=== PATIENT | female | born 1980 | race Caucasian/White ===

== ENCOUNTER 2018-01-28 09:18 | Emergency (ER) | payer OTHER ==
[~2018-01-28] VITALS: Ht 160 cm; Wt 63.0 kg
[~2018-01-28 09:18] MED LIST: AZITHROMYCIN 2250 MG PO; BACTRIM DS TAB1 EACH PO; CHERACOL COUGH120 ML PO; COMPAZINE10 MG PO; DARVOCET-N 1001 EACH PO; FLEXERIL PO; IBUPROFEN 800800 M1 PO; IBUPROFEN 800800 MG PO; KEFLEX500 MG PO; KENALOG60 GM TP; NOHOMEMEDICATIONS; NORCO 5-325 TA1 EACH PO; PENICILLIN VK500 M1 PO; PERCOCET 5-3251 EACH PO; PREDNISONE 20 M20 MG PO; SEROQUEL200 MG PO; TRAMADOL 50 MG50 MG PO; XANAX 0.25 MG0.25 MG PO
[2018-01-28] MEDS ORDERED: BACTRIM DS TAB1 EACH PO (10:12)
[2018-01-28] MEDS ORDERED: NORCO 5-325 TA1 EACH PO (10:12)
[2018-01-28] MEDS ORDERED: DIFLUCAN150 MG PO (11:09)
[2018-01-28 11:16] VITALS: BP 124/93
== END 2018-01-28 11:17 | disposition home or self-care (01) ==
LOC: M.ERS 09:18
DX: L02.211 Cutaneous abscess of abdominal wall (principal); L02.31 Cutaneous abscess of buttock; F41.9 Anxiety disorder, unspecified; F17.200 Nicotine dependence, unspecified, uncomplicated; Z88.8 Allergy status to other drugs, medicaments and biological substances

== ENCOUNTER 2018-07-08 15:18 | Emergency (ER) | payer OTHER ==
[~2018-07-08] VITALS: Ht 162.6 cm; Wt 59.0 kg
[~2018-07-08 15:18] MED LIST changes: +DIFLUCAN150 MG PO
[2018-07-08 15:52] LABS: HEMATOCRIT 49.7 % (37.0-47.0); HEMOGLOBIN 17.1 gm/dL (12.0-15.0); MCH 30.9 pg (26.0-34.0); MCHC 34.5 g/dL (28.0-37.0); MCV 89.4 fL (80.0-100.0); MPV 8.1 fl. (7.2-11.1); NUCLEATED RBCS 0 /100WBC; PLATELET COUNT* 289 thou/uL (150-400); RBC 5.56 mil/uL (4.20-5.00); RDW-CV 13.6 % (10.5-14.5); WBC 15.8 thou/uL (4.0-11.0)
[2018-07-08 16:06] LABS: CALCIUM 9.1 mg/dL (8.5-10.1); CREATININE 0.7 mg/dL (0.6-1.3); POTASSIUM 3.8 mmol/L (3.5-5.1)
[2018-07-08 16:11] LABS: ALBUMIN 4.1 g/dL (3.4-5.0); TOTAL BILIRUBIN 0.6 mg/dL (<0.1-1.0); TOTAL PROTEIN 7.6 g/dL (6.4-8.2)
[2018-07-08 16:32] LABS: ABSOLUTE EOSINOPHILS 0.2 thou/uL (0.0-0.7); ABSOLUTE LYMPHOCYTES 1.1 thou/uL (0.8-5.3); ABSOLUTE MONOCYTES 0.2 thou/uL (0.0-1.2); ABSOLUTE NEUTROPHILS 14.4 thou/uL (1.6-8.1); ATYPICAL LYMPHS 1 %; PLATELET ESTIMATE ADEQUATE
[2018-07-08 17:22] LABS: URINE BILIRUBIN NEGATIVE (Negative); URINE BLOOD TRACE (Negative); URINE CLARITY CLEAR; URINE COLOR YELLOW; URINE GLUCOSE-RANDOM NEGATIVE (Negative); URINE KETONES NEGATIVE (Negative); URINE LEUKOCYTES-REFLEX NEGATIVE (Negative); URINE NITRITE-REFLEX NEGATIVE (Negative); URINE PROTEIN NEGATIVE (Negative); URINE SPECIFIC GRAVITY >= 1.030 (1.005-1.030); URINE UROBILINOGEN 0.2 E.U./dl (0.2-1.0)
[2018-07-08] MEDS ORDERED: FLAGYL500 M1 PO (17:28)
[2018-07-08] MEDS ORDERED: BENTYL 20 MG TA20 M1 PO (17:28)
[2018-07-08] MEDS ORDERED: DIFLUCAN150 MG PO (18:06)
[2018-07-08 18:08] VITALS: BP 118/78
== END 2018-07-08 18:09 | disposition home or self-care (01) ==
LOC: M.ERS 15:18
PROVIDERS: Nurse Practitioner Family
DX: K52.9 Noninfective gastroenteritis and colitis, unspecified (principal)

== ENCOUNTER 2019-03-06 14:27 | Emergency (ER) | payer OTHER ==
[~2019-03-06] VITALS: Ht 160 cm; Wt 57.1 kg
[~2019-03-06 14:27] MED LIST changes: +BENTYL 20 MG TA20 M1 PO; +FLAGYL500 M1 PO
[2019-03-06] MEDS ORDERED: ONE DAILY WOME1 EAC3 PO (14:38)
[2019-03-06] MEDS ORDERED: PREDNISONE 20 M20 M1 PO (15:36)
[2019-03-06] MEDS ORDERED: ALBUTEROL2.5 MG/31 INH (15:36)
[2019-03-06] MEDS ORDERED: ZPAK PO (15:36)
[2019-03-06 16:02] VITALS: BP 123/87
== END 2019-03-06 16:02 | disposition home or self-care (01) ==
LOC: M.ERS 14:27
DX: J20.9 Acute bronchitis, unspecified (principal); H66.93 Otitis media, unspecified, bilateral; F41.9 Anxiety disorder, unspecified; F17.210 Nicotine dependence, cigarettes, uncomplicated; Z88.8 Allergy status to other drugs, medicaments and biological substances; Z98.51 Tubal ligation status

== ENCOUNTER 2019-04-25 19:02 | Emergency (ER) | payer OTHER ==
[~2019-04-25] VITALS: Ht 160 cm; Wt 57.1 kg
[~2019-04-25 19:02] MED LIST changes: +ALBUTEROL2.5 MG/31 INH; +ONE DAILY WOME1 EAC3 PO; +PREDNISONE 20 M20 M1 PO; +ZPAK PO
[2019-04-25] MEDS ORDERED: DOXYCYCLINE 10100 MG PO (19:36)
[2019-04-25 20:21] VITALS: BP 111/75
== END 2019-04-25 20:23 | disposition home or self-care (01) ==
LOC: M.ERS 19:02
DX: S30.861A Insect bite (nonvenomous) of abdominal wall, initial encounter (principal); F41.9 Anxiety disorder, unspecified; Z88.8 Allergy status to other drugs, medicaments and biological substances; Z98.51 Tubal ligation status; W57.XXXA Bitten or stung by nonvenomous insect and other nonvenomous arthropods, initial encounter; Y93.89 Activity, other specified; Y92.89 Other specified places as the place of occurrence of the external cause; Y99.8 Other external cause status

== ENCOUNTER 2019-07-18 13:04 | Inpatient (IN) | payer OTHER ==
[~2019-07-18] VITALS: Ht 162.6 cm; Wt 59.4 kg
--- NOTE | ~2019-07-18 | PROC ---
[address] [address] PROCEDURE REPORT Name: NALDO BLAKELY Room: [address] IN ..#: [id number] Admission: 07/18/19 Attend Phys: Huong Isaacs MD Discharge: 07/22/19 Date of : 80 Report #: [id number] THIS REPORT FOR: //name// For GI report, please see the Provation report in [employer] content. By: [id number] Records Staff KENNETH /BARBARA
[~2019-07-18 13:04] MED LIST changes: +DOXYCYCLINE 10100 MG PO
[2019-07-18 13:20] VITALS: BP 123/92
[2019-07-18 14:43] LABS: URINE BILIRUBIN 1+ (Negative); URINE BLOOD NEGATIVE (Negative); URINE CLARITY CLEAR; URINE COLOR YELLOW; URINE GLUCOSE-RANDOM NEGATIVE (Negative); URINE KETONES 3+ (Negative); URINE LEUKOCYTES-REFLEX NEGATIVE (Negative); URINE NITRITE-REFLEX NEGATIVE (Negative); URINE PROTEIN TRACE (Negative); URINE SPECIFIC GRAVITY 1.015 (1.005-1.030)
[2019-07-18 14:46] LABS: ACETEST (KETONE CONFIRMATORY) Large (Negative); ICTOTEST (BILI CONFIRMATORY) Negative (Negative)
[2019-07-18 15:04] LABS: ABSOLUTE EOSINOPHILS 0.1 thou/uL (0.0-0.7); ABSOLUTE LYMPHOCYTES 1.9 thou/uL (0.8-5.3); ABSOLUTE MONOCYTES 0.6 thou/uL (0.0-1.2); ABSOLUTE NEUTROPHILS 8.1 thou/uL (1.6-8.1); BASOPHILS 0.4 %; EOSINOPHILS 0.9 %; HEMATOCRIT 46.1 % (37.0-47.0); HEMOGLOBIN 15.6 gm/dL (12.0-15.0); LYMPHOCYTES 17.6 %; MCH 30.4 pg (26.0-34.0); MCHC 33.9 g/dL (28.0-37.0); MCV 89.7 fL (80.0-100.0); MPV 8.2 fl. (7.2-11.1); NUCLEATED RBCS 0 /100WBC; PLATELET COUNT* 268 thou/uL (150-400); POLYS 75.1 %; RBC 5.13 mil/uL (4.20-5.00); WBC 10.8 thou/uL (4.0-11.0)
[2019-07-18 15:10] LABS: CALCIUM 8.8 mg/dL (8.5-10.1); CREATININE 0.7 mg/dL (0.6-1.3); POTASSIUM 3.8 mmol/L (3.5-5.1)
[2019-07-18 15:29] LABS: ALBUMIN 3.9 g/dL (3.4-5.0); TOTAL BILIRUBIN 0.8 mg/dL (<0.1-1.0); TOTAL PROTEIN 6.9 g/dL (6.4-8.2)
[2019-07-18 17:03] VITALS: BP 123/92
[2019-07-18 17:39] VITALS: BP 108/72
[2019-07-18 20:14] VITALS: BP 120/74
[2019-07-19 04:11] LABS: HEMATOCRIT 42.2 % (37.0-47.0); HEMOGLOBIN 14.1 gm/dL (12.0-15.0); MCH 30.3 pg (26.0-34.0); MCHC 33.5 g/dL (28.0-37.0); MCV 90.5 fL (80.0-100.0); MPV 8.4 fl. (7.2-11.1); RBC 4.66 mil/uL (4.20-5.00); RDW-CV 12.7 % (10.5-14.5); WBC 9.1 thou/uL (4.0-11.0)
[2019-07-19 04:23] LABS: ALBUMIN 3.1 g/dL (3.4-5.0); CALCIUM 8.1 mg/dL (8.5-10.1); CREATININE 0.7 mg/dL (0.6-1.3); MAGNESIUM 1.8 mg/dL (1.8-2.4); POTASSIUM 3.4 mmol/L (3.5-5.1); TOTAL BILIRUBIN 0.7 mg/dL (<0.1-1.0); TOTAL PROTEIN 5.7 g/dL (6.4-8.2)
[2019-07-19 07:06] VITALS: BP 105/68
[2019-07-19 15:23] VITALS: BP 94/53
[2019-07-19 19:30] VITALS: BP 106/63
[2019-07-20 07:02] VITALS: BP 110/82
[2019-07-20 16:00] VITALS: BP 114/69
[2019-07-21 04:56] LABS: HEMATOCRIT 47.7 % (37.0-47.0); HEMOGLOBIN 15.6 gm/dL (12.0-15.0); MCH 30.2 pg (26.0-34.0); MCHC 32.7 g/dL (28.0-37.0); MCV 92.2 fL (80.0-100.0); MPV 9.1 fl. (7.2-11.1); RBC 5.18 mil/uL (4.20-5.00); RDW-CV 12.8 % (10.5-14.5); WBC 9.4 thou/uL (4.0-11.0)
[2019-07-21 05:15] VITALS: BP 102/64
[2019-07-21 05:30] LABS: ALBUMIN 3.8 g/dL (3.4-5.0); CALCIUM 8.5 mg/dL (8.5-10.1); CREATININE 0.6 mg/dL (0.6-1.3); MAGNESIUM 1.6 mg/dL (1.8-2.4); POTASSIUM 4.1 mmol/L (3.5-5.1); TOTAL BILIRUBIN 0.6 mg/dL (<0.1-1.0); TOTAL PROTEIN 7.1 g/dL (6.4-8.2)
[2019-07-21 08:15] VITALS: BP 100/56
[2019-07-21 16:00] VITALS: BP 118/60
[2019-07-22] VITALS: BP 116/59
[2019-07-22 05:09] VITALS: BP 116/59
[2019-07-22 07:50] VITALS: BP 121/72
[2019-07-22 16:00] VITALS: BP 123/80
[2019-07-22] MEDS ORDERED: CIPRO500 M1 PO (17:11)
[2019-07-22] MEDS ORDERED: FLAGYL500 M1 PO (17:12)
[2019-07-22] MEDS ORDERED: BENTYL 20 MG TA20 M1 PO (17:13)
[2019-07-22 17:16] VITALS: BP 123/80
--- NOTE | 2019-07-24 14:07 | PATH ---
[address] [address] PATHOLOGY RPT PROCEDURE Name: REINA BLAKELY Room: [address] IN M.R.#: [id number] Admission: 07/18/19 Date of : 80 Discharge: 07/22/19 Report #: [id number] Path Case #: [id number] [facility] Accession Number: [id number] . 01 Material submitted: . colon - RANDOM COLON BIOPSIES . 01 Clinical history: . None provided . 02 Diagnosis: Random colon biopsies: - Several prominent lymphoid aggregates (Peyer's patches) and focal fresh hemorrhage in otherwise normal colonic mucosa. . (LETITIA:mml; 07/24/2019) QLM 07/24/2019 1052 Local . 02 Electronically signed: . Teddy Mendosa MD, Pathologist NPI- [id number] . 01 Gross description: . The specimen is received in formalin, labeled "Wisthoff, Reina, random colon biopsies" and consists of multiple fragments of pink-huynh tissue measuring 1.3 x 0.7 x 0.2 cm in aggregate which are entirely submitted in A1. (SDY; 07/23/2019) SYU/SYU 07/23/2019 1118 Local . 02 Pathologist provided ICD-10: K52.9 . 02 CPT . 670144 Specimen Comment: A courtesy copy of this report has been sent to [phone] Specimen Comment: [phone] Specimen Comment: Report sent to and Performed at: [address] [facility], [place], [place] [id number] MD Rangel Acuña MD Phone: [phone] Performed at: [address] [facility] [address] [place], [place] [id number] MD Teddy Mendosa MD Phone: [phone]
--- NOTE | 2019-07-24 14:27 | CON ---
[address] [address] CONSULTATION Name: NALDO BLAKELY Room: [address] IN .R.#: [id number] Admission: 07/18/19 Attend Phys: Huong Isaacs MD Discharge: 07/22/19 Date of : 80 Report #: [id number] THIS REPORT FOR: //name// CC: FAM physician/PCP Huong Suarez MD DATE OF SERVICE: 07/19/2019 REQUESTING PHYSICIAN: Dr. Huong Isaacs. REASON FOR CONSULT: Abdominal pain and evidence of colitis per CT. HISTORY OF PRESENT ILLNESS: This is a 39-year-old female with two episodes of diverticulitis a year ago for which she received care at [facility]. The patient reports that she started having abdominal pain with symptoms of nausea and vomiting and large volume diarrhea, which prompted her to come to hospital. Since hospitalization, she had blood test and CT of abdomen and pelvis. CT revealed evidence of colitis, more in ascending colon than transverse. She denies any hematochezia or melena. Since admission, she has been on IV antibiotics including Cipro and Flagyl. She admits that she has never had a colonoscopy in the past. PAST MEDICAL HISTORY: Significant for history of recurrent diverticulitis, anxiety disorder, tubal ligation, ovarian cyst, recurrent ear infections. ALLERGIES: SIGNIFICANT TO PHENERGAN. MEDICATIONS: Please refer to MAR. SOCIAL HISTORY: The patient smokes half a pack of cigarettes per day. She denies alcohol use. She also utilizes marijuana. FAMILY HISTORY: Negative for GI malignancy. PHYSICAL EXAMINATION: VITAL SIGNS: Reveals normal vitals. LUNGS: Clear. CARDIOVASCULAR: Regular. ABDOMEN: Soft, tender to palpation in the right side more than left side. Bowel sounds are positive. NEUROLOGIC: The patient is alert, oriented x 3. There is no focal neurologic deficit. LABORATORY DATA: Reveal sodium of 140, potassium 3.4, BUN is 9, creatinine 0.7, [place] [address] CONSULTATION Name: NALDO BLAKELY JOHN Room: [address]#: [id number] Admission: 07/18/19 Attend Phys: Huong Isaacs MD Discharge: 07/22/19 Date of : 80 Report #: [id number] glucose is 76, AST is 11, ALT is 14, alkaline phosphatase 46, total bilirubin 0.7, lipase is 54. WBC is 9.1, hemoglobin is 14.1 with platelets of 232. IMAGING: As discussed above. ASSESSMENT AND PLAN: The patient with history of recurrent diverticulitis in the past with no previous history of colonoscopy, who presents with abdominal pain and has CT suggestive of thickening of the colon, mainly in the ascending colon region. We will consider colonoscopy on Sunday as we continue her IV antibiotics. We will make further recommendation based on finding. Meanwhile I will put her on MiraLax 17 g p.o. b.i.d. until we start the prep tomorrow. <ELECTRONICALLY SIGNED> By: Samir Cook MD 07/24/19 1427 1254 [id number] Cook MD /nt
== END 2019-07-22 17:50 | disposition home or self-care (01) | DRG 392 ==
LOC: M.ERS 13:04 → M.TBA-ER 16:38 → M.3W 16:38
PROVIDERS: Nurse Practitioner Family; ADMIT Internal Medicine
PROC: 0DBE8ZX Excision of Large Intestine, Via Natural or Artificial Opening Endoscopic, Diagnostic (ICD-10-PCS; principal; 2019-07-22)
DX: K57.30 Diverticulosis of large intestine without perforation or abscess without bleeding (principal); F41.9 Anxiety disorder, unspecified; F12.90 Cannabis use, unspecified, uncomplicated; K52.9 Noninfective gastroenteritis and colitis, unspecified; F17.210 Nicotine dependence, cigarettes, uncomplicated; E86.9 Volume depletion, unspecified; K64.8 Other hemorrhoids; Z88.8 Allergy status to other drugs, medicaments and biological substances; Z79.899 Other long term (current) drug therapy

== ENCOUNTER 2021-08-01 15:27 | Emergency (ER) | payer OTHER ==
[~2021-08-01] VITALS: Ht 160 cm; Wt 65.8 kg
[~2021-08-01 15:27] MED LIST changes: +CIPRO500 M1 PO
[2021-08-01 16:56] LABS: URINE BILIRUBIN NEGATIVE (Negative); URINE BLOOD NEGATIVE (Negative); URINE CLARITY CLOUDY; URINE COLOR YELLOW; URINE GLUCOSE-RANDOM NEGATIVE (Negative); URINE KETONES NEGATIVE (Negative); URINE LEUKOCYTES-REFLEX NEGATIVE (Negative); URINE NITRITE-REFLEX NEGATIVE (Negative); URINE PROTEIN NEGATIVE (Negative); URINE UROBILINOGEN 0.2 E.U./dl (0.2-1.0)
[2021-08-01 23:14] VITALS: BP 124/89
== END 2021-08-01 23:15 | disposition left against medical advice (07) ==
LOC: M.ERS 15:27
PROVIDERS: Nurse Practitioner Family
DX: R10.9 Unspecified abdominal pain (principal); R11.2 Nausea with vomiting, unspecified; H92.22 Otorrhagia, left ear; H92.02 Otalgia, left ear; K21.9 Gastro-esophageal reflux disease without esophagitis; Z53.21 Procedure and treatment not carried out due to patient leaving prior to being seen by health care provider